=== PATIENT | female | born 1965 | race Caucasian/White ===

== ENCOUNTER 2021-07-24 18:47 | Emergency (ER) | payer SELFPAY ==
[2021-07-24] MEDS ORDERED: ACETAMINOPHEN 500 MG TAB PO ONE ×2 (19:36→21:42)
[2021-07-24] MEDS ORDERED: IBUPROFEN 800 MG TAB PO ONE ×2 (19:36→21:41)
[2021-07-24 19:55] LABS: Basophils % (Auto) 0.4 % (0.0-1.8); Eosinophils # (Auto) 0.1 K/mm3 (0.0-0.4); Eosinophils % (Auto) 2.3 % (0.0-4.3); Hematocrit 29.1 % (30.3-42.9); Hemoglobin 9.3 gm/dl (10.1-14.3); Lymphocytes # (Auto) 1.3 K/mm3 (1.2-5.4); Lymphocytes % (Auto) 21.8 % (13.4-35.0); Mean Corpuscular HGB Conc 32 % (30-34); Mean Corpuscular Volume 94 fl (79-97); Monocytes # (Auto) 0.9 K/mm3 (0.0-0.8); Monocytes % (Auto) 14.9 % (0.0-7.3); Platelet Count 405 K/mm3 (140-440); Red Blood Count 3.09 M/mm3 (3.65-5.03); Red Cell Distribution Width 14.8 % (13.2-15.2)
[2021-07-24 20:14] LABS: Blood Urea Nitrogen 15 mg/dL (7-17); Calcium 9.7 mg/dL (8.4-10.2); Hemolysis Index 17
[2021-07-24 20:15] LABS: BUN/Creatinine Ratio 30
--- NOTE | 2021-07-24 23:51 | Emergency Department Report ---
ED Psych HPI - General Chief Complaint: Psych Stated Complaint: LUPUS FLARE UP/SI Time Seen by Provider: 07/24/21 19:35 Source: patient, EMS Mode of arrival: Stretcher Limitations: No Limitations - History of Present Illness Initial Comments: CC: "I'm suicidal. I am in pain." HPI: This is a 55 yo female with hx of anxiety, depression and lupus who pr esents with suicidal thoughts and bilateral chronic thigh/hip pain. NO hx of trauma. She attributes pain to lupus. She lives in [place], [place] with no social support and limited income. She was recently placed in [facility] by outside facility. She arrives via EMS. She does not have a plan to harm herself or others. She denies hallucinations. MD Complaint: suicidal ideation -: Gradual, week(s) (Several weeks) Associated Psychiatric Symptoms: depression, suicidal ideation History of same: Yes Quality: constant Improves With: none Worsens With: none Context: not taking psychiatric, significant life stressor Associated Symptoms: other (Chronic hip pain) If Self Harm: admits thoughts of - Related Data Home Medications Medication Instructions Recorded Confirmed Last Taken Oxycodone HCl/Acetaminophen 1 tab PO TID 07/25/21 07/25/21 Unknown [Percocet 10/325 mg] Allergies Allergy/AdvReac Type Severity Reaction Status Date / Time No Known Allergies Allergy Verified 07/24/21 18:56 ED Review of Systems ROS: Stated complaint: LUPUS FLARE UP/SI Other details as noted in HPI Comment: All other systems reviewed and negative Constitutional: denies: chills, fever, malaise Respiratory: denies: cough, shortness of breath Gastrointestinal: denies: abdominal pain, nausea, vomiting Musculoskeletal: arthralgia Psychiatric: anxiety, depression, suicidal thoughts. denies: auditory hallucinations, visual hallucinations, homicidal thoughts ED Past Medical Hx - Past Medical History Previous Medical History?: Yes Hx Psychiatric Treatment: Yes (Anxiety depression) Additional medical history: LUPUS, SI - Surgical History Additional Surgical History: Unable to obtain due to lack of patient cooperation - Social History Smoking Status: Current Every Day Smoker Substance Use Type: None - Medications Home Medications: Home Medications Medication Instructions Recorded Confirmed Last Taken Type Oxycodone HCl/Acetaminophen 1 tab PO TID 07/25/21 07/25/21 Unknown History [Percocet 10/325 mg] ED Physical Exam - General Limitations: No Limitations General appearance: alert, in no apparent distress, other (Nontoxic, GCS 15,) - Head Head exam: Present: atraumatic, normocephalic - Eye Eye exam: Present: normal appearance - ENT ENT exam: Present: mucous membranes moist - Neck Neck exam: Present: normal inspection, full ROM - Respiratory Respiratory exam: Present: normal lung sounds bilaterally. Absent: respiratory distress, wheezes, rales, rhonchi - Cardiovascular Cardiovascular Exam: Present: regular rate, normal rhythm, normal heart sounds. Absent: systolic murmur, diastolic murmur, rubs, gallop - GI/Abdominal GI/Abdominal exam: Present: soft, normal bowel sounds. Absent: distended, tenderness, guarding, rebound - Extremities Exam Extremities exam: Present: normal inspection, full ROM. Absent: tenderness - Expanded Lower Extremity Exam Left Hip exam: Present: normal inspection, full ROM Upper Leg exam: Present: normal inspection, full ROM Knee exam: Present: normal inspection, full ROM Lower Leg exam: Present: normal inspection, full ROM Right Hip exam: Present: normal inspection, full ROM Upper Leg exam: Present: normal inspection, full ROM Knee exam: Present: normal inspection, full ROM Lower Leg exam: Present: normal inspection, full ROM - Back Exam Back exam: Present: normal inspection - Neurological Exam Neurological exam: Present: alert, oriented X3 - Psychiatric Psychiatric exam: Present: normal affect, normal mood - Skin Skin exam: Present: warm, dry, intact, normal color. Absent: rash ED Course Vital Signs 07/24/21 07/24/21 07/24/21 18:55 20:30 22:32 Temperature 98.0 F 98.1 F Pulse Rate 92 H 73 Respiratory 16 18 Rate Blood Pressure 153/104 134/54 [Right] O2 Sat by Pulse 98 100 98 Oximetry 07/25/21 07/25/21 07/25/21 10:05 11:50 19:40 Temperature 98.6 F 98.9 F Pulse Rate 94 H 90 Respiratory 18 18 Rate Blood Pressure 107/65 139/70 [Right] O2 Sat by Pulse 98 98 97 Oximetry 07/25/21 07/26/21 07/26/21 20:05 10:57 22:00 Temperature 98.2 F 97.6 F Pulse Rate 98 H 94 H Respiratory 18 18 Rate Blood Pressure 117/70 134/62 [Right] O2 Sat by Pulse 97 99 97 Oximetry ED Medical Decision Making - Lab Data Result diagrams: 07/24/21 19:42 07/24/21 19:42 Laboratory Results - last 24 hr 07/24/21 07/24/21 07/24/21 19:42 19:42 19:42 WBC 5.8 RBC 3.09 L Hgb 9.3 L Hct 29.1 L MCV 94 MCH 30 MCHC 32 RDW 14.8 Plt Count 405 Lymph % (Auto) 21.8 [facility] % (Auto) 14.9 H Eos % (Auto) 2.3 Baso % (Auto) 0.4 Lymph # (Auto) 1.3 [facility] # (Auto) 0.9 H Eos # (Auto) 0.1 Baso # (Auto) 0.0 Seg Neutrophils % 60.6 Seg Neutrophils # 3.5 Sodium 136 L Potassium 4.6 Chloride 98.9 Carbon Dioxide 27 Anion Gap 15 BUN 15 Creatinine 0.5 L Estimated GFR > 60 BUN/Creatinine Ratio 30 Glucose 211 H Calcium 9.7 Salicylates < 0.3 L Acetaminophen Plasma/Serum Alcohol 07/24/21 07/24/21 19:42 19:42 WBC RBC Hgb Hct MCV MCH MCHC RDW Plt Count Lymph % (Auto) [facility] % (Auto) Eos % (Auto) Baso % (Auto) Lymph # (Auto) [facility] # (Auto) Eos # (Auto) Baso # (Auto) Seg Neutrophils % Seg Neutrophils # Sodium Potassium Chloride Carbon Dioxide Anion Gap BUN Creatinine Estimated GFR BUN/Creatinine Ratio Glucose Calcium Salicylates Acetaminophen 5.0 L Plasma/Serum Alcohol < 0.01 - Medical Decision Making 1. Suicidal ideation without plan: I suspect homelessness this indication for secondary gain. She is medically clear for psychiatric care. Awaiting both mental health consult and case management consultations. CBC chemistry unremarkable. Mild anemia. Serum toxicology unremarkable 2. History of SLE: No indication of severe exacerbation. Patient has chronic thigh and hip pain. Given ibuprofen and Tylenol upon arrival. Critical care attestation.: If time is entered above; I have spent that time in minutes in the direct care of this critically ill patient, excluding procedure time. ED Disposition Clinical Impression: Lupus, Anxiety, Depression Disposition: [address] [place] [address] Is pt being admited?: No Does the pt Need Aspirin: No Condition: Stable Referrals: PRIMARY CARE, [Primary Care Provider] - 3-5 Days
[2021-07-25] MEDS ORDERED: ACETAMINOPHEN 325 MG TAB PO ONE (09:26)
[2021-07-25] MEDS ORDERED: IBUPROFEN 800 MG TAB PO ONE (09:26)
--- NOTE | 2021-07-25 11:29 | Consultation ---
History of Present Illness - Reason for Consult Consult date: 07/25/21 Reason for consult: SI - History of Present Psychiatric Illness Bernadine Garcia is a 55y/o female patient whom I seen today. She is sobbing, and says she's hurting and no one is helping her. She endorses suicidal thoughts. She states she has no help or no social support. The patient says "I'm tired of l iving like this." When asking the patient if she had a plan to harm herself, she puts her head under the linen and says "I'm depressed, and I'm hurting. I'm not talking anymore." PAST PSYCHIATRIC HISTORY: Unable to obtain PAST MEDICAL HISTORY: unknown Family Psychiatric History: None reported or documented SOCIAL HISTORY Unable to obtain REVIEW OF SYSTEMS Unable to obtain MENTAL STATUS EXAMINATION General Appearance and Behavior: Age appropriate, good hygiene, wearing appropriate clothes. calm, Cooperation: Cooperative Psychomotor Behavior: Psychomotor normal Mood: Depressed Affect and affective range: tearful Thought Process: circumstantial Thought Content: hopelessness Speech: Normal tone and pace Suicidal Ideation: Yes Homicidal Ideation: Denies Hallucinations: Denies Delusions: Denies Impulse Control: Poor Insight and Judgment: Limited insight and fair judgment Memory: Limited Attention: distracted Orientation: a/o x 3 Assessment (1) Major Depressive Disorder Treatment Plan 1013 Agree with Case management consult Cynbalta 30mg po daily Trazodone 50mg po qhs Vistaril 50mg po BID Medical: Per primary Disposition: Recommend acute psychiatric inpatient treatment Will follow. Thanks Case staffed with Dr. Liu Medications and Allergies Allergies Allergy/AdvReac Type Severity Reaction Status Date / Time No Known Allergies Allergy Verified 07/24/21 18:56 Home Medications Medication Instructions Recorded Confirmed Last Taken Type Oxycodone HCl/Acetaminophen 1 tab PO TID 07/25/21 07/25/21 Unknown History [Percocet 10/325 mg] Mental Status Exam - Vital signs Last Vital Signs Temp 98.1 F 07/24/21 20:30 Pulse 73 07/24/21 20:30 Resp 18 07/24/21 20:30 BP 134/54 07/24/21 20:30 Pulse Ox 98 07/25/21 10:05 Results Result Diagrams: 07/24/21 19:42 07/24/21 19:42 Abnormal lab results 07/24/21 07/24/21 07/24/21 Range/Units 19:42 19:42 19:42 RBC 3.09 L (3.65-5.03) M/mm3 Hgb 9.3 L (10.1-14.3) gm/dl Hct 29.1 L (30.3-42.9) % [place] % (Auto) 14.9 H (0.0-7.3) % [place] # (Auto) 0.9 H (0.0-0.8) K/mm3 Sodium 136 L (137-145) mmol/L Creatinine 0.5 L (0.6-1.2) mg/dL Glucose 211 H (65-100) mg/dL Salicylates < 0.3 L (2.8-20.0) mg/dL Acetaminophen (10.0-30.0) ug/mL 07/24/21 Range/Units 19:42 RBC (3.65-5.03) M/mm3 Hgb (10.1-14.3) gm/dl Hct (30.3-42.9) % [place] % (Auto) (0.0-7.3) % [place] # (Auto) (0.0-0.8) K/mm3 Sodium (137-145) mmol/L Creatinine (0.6-1.2) mg/dL Glucose (65-100) mg/dL Salicylates (2.8-20.0) mg/dL Acetaminophen 5.0 L (10.0-30.0) ug/mL All other labs normal.
[2021-07-25] MEDS ORDERED: HALOPERIDOL LACTATE 5 MG/1 ML INJ IM PRN (12:02)
[2021-07-25] MEDS ORDERED: diphenhydrAMINE 25 MG CAP PO PRN (12:02)
[2021-07-25] MEDS ORDERED: LORazepam 2 MG/ML VIAL IM PRN (12:02)
[2021-07-25] MEDS ORDERED: IBUPROFEN 400 MG TAB PO PRN (12:04)
--- NOTE | 2021-07-25 12:07 | Event Note ---
Date: 07/25/21 The patient was evaluated in the emergency department for symptoms described in the history of present illness. He/she was evaluated in the context of the global COVID-19 pandemic, which necessitated consideration that the patient might be at risk for infection with the virus that causes COVID-19. Institutional protocols and algorithms that pertain to the evaluation of patients at risk for COVID-19 are in a state of rapid change based on information released by regulatory bodies including the CDC and federal and state organizations. These policies and algorithms were followed during the patient's care in the emergency department. Please note that these policies, procedures and recommendations changed on a rapid basis. Laboratory studies, vital signs, nursing documentation, ER documentation, and psychiatric documentation are reviewed and appreciated. The patient was deemed medically suitable for psychiatric disposition and pl acement during his initial ER evaluation. The patient continues to remain medically suitable for psychiatric placement and disposition. sHe is currently pending psychiatric placement. The patient told staff members that she has lupus. She is unclear about where her original diagnosis came from. She states that she was diagnosed "somewhere in [facility]." She states this was diagnosed many years ago. She reports that to the best of her recollection, she does not have a primary care doctor, pain specialist, or wireless operator. She did report to nursing team that she has been prescribed Percocet . Looked patient up on [place] prescription monitoring database, using her personal identifying characteristics, and found no records of Percocet or controlled substances. Laboratory studies reviewed and appreciated. Start patient on as needed Tylenol, Motrin, iron sulfate, daily multivitamin, and folic acid. A 1013 form has been filled out and ordered by myself, as per the recommendation of the psychiatric team. Vital Signs 07/24/21 07/24/21 07/24/21 18:55 20:30 22:32 Temperature 98.0 F 98.1 F Pulse Rate 92 H 73 Respiratory 16 18 Rate Blood Pressure 153/104 134/54 [Right] O2 Sat by Pulse 98 100 98 Oximetry 07/25/21 07/25/21 10:05 11:50 Temperature 98.6 F Pulse Rate 94 H Respiratory 18 Rate Blood Pressure 107/65 [Right] O2 Sat by Pulse 98 98 Oximetry Lab Results 07/24/21 07/24/21 07/24/21 Range/Units 19:42 19:42 19:42 WBC 5.8 (4.5-11.0) K/mm3 RBC 3.09 L (3.65-5.03) M/mm3 Hgb 9.3 L (10.1-14.3) gm/dl Hct 29.1 L (30.3-42.9) % MCV 94 (79-97) fl MCH 30 (28-32) pg MCHC 32 (30-34) % RDW 14.8 (13.2-15.2) % Plt Count 405 (140-440) K/mm3 Lymph % (Auto) 21.8 (13.4-35.0) % [place] % (Auto) 14.9 H (0.0-7.3) % Eos % (Auto) 2.3 (0.0-4.3) % Baso % (Auto) 0.4 (0.0-1.8) % Lymph # (Auto) 1.3 (1.2-5.4) K/mm3 [place] # (Auto) 0.9 H (0.0-0.8) K/mm3 Eos # (Auto) 0.1 (0.0-0.4) K/mm3 Baso # (Auto) 0.0 (0.0-0.1) K/mm3 Seg Neutrophils % 60.6 (40.0-70.0) % Seg Neutrophils # 3.5 (1.8-7.7) K/mm3 Sodium 136 L (137-145) mmol/L Potassium 4.6 (3.6-5.0) mmol/L Chloride 98.9 (98-107) mmol/L Carbon Dioxide 27 (22-30) mmol/L Anion Gap 15 mmol/L BUN 15 (7-17) mg/dL Creatinine 0.5 L (0.6-1.2) mg/dL Estimated GFR > 60 ml/min BUN/Creatinine Ratio 30 % Glucose 211 H (65-100) mg/dL Calcium 9.7 (8.4-10.2) mg/dL Salicylates < 0.3 L (2.8-20.0) mg/dL Acetaminophen (10.0-30.0) ug/mL Plasma/Serum Alcohol (0-0.07) % SARS-CoV-2 (PCR) (Negative) 01/18/22 01/18/22 01/19/22 Range/Units 19:42 19:42 08:30 WBC (4.5-11.0) K/mm3 RBC (3.65-5.03) M/mm3 Hgb (10.1-14.3) gm/dl Hct (30.3-42.9) % MCV (79-97) fl MCH (28-32) pg MCHC (30-34) % RDW (13.2-15.2) % Plt Count (140-440) K/mm3 Lymph % (Auto) (13.4-35.0) % [place] % (Auto) (0.0-7.3) % Eos % (Auto) (0.0-4.3) % Baso % (Auto) (0.0-1.8) % Lymph # (Auto) (1.2-5.4) K/mm3 [place] # (Auto) (0.0-0.8) K/mm3 Eos # (Auto) (0.0-0.4) K/mm3 Baso # (Auto) (0.0-0.1) K/mm3 Seg Neutrophils % (40.0-70.0) % Seg Neutrophils # (1.8-7.7) K/mm3 Sodium (137-145) mmol/L Potassium (3.6-5.0) mmol/L Chloride (98-107) mmol/L Carbon Dioxide (22-30) mmol/L Anion Gap mmol/L BUN (7-17) mg/dL Creatinine (0.6-1.2) mg/dL Estimated GFR ml/min BUN/Creatinine Ratio % Glucose (65-100) mg/dL Calcium (8.4-10.2) mg/dL Salicylates (2.8-20.0) mg/dL Acetaminophen 5.0 L (10.0-30.0) ug/mL Plasma/Serum Alcohol < 0.01 (0-0.07) % SARS-CoV-2 (PCR) Negative (Negative)
[2021-07-25] MEDS: DULoxetine 30 MG CAP PO SCH (13:01)
[2021-07-25 13:33] LABS: Bacteria,Urine 2+ /HPF (Negative); Bilirubin,Urine NEG (Negative); Blood,Urine NEG (Negative); Color,Urine Yellow (Yellow); Mucus,Urine FEW /HPF; Protein,Urine <15 mg/dL mg/dL (Negative); Urobilinogen,Urine < 2.0 mg/dL (<2.0)
[2021-07-25 13:40] LABS: Amphetamine Screen,Urine Negative; Benzodiazepines Screen,Urine Negative; Cannabinoid Screen,Urine Negative; Cocaine Screen,Urine Negative; Methadone Screen,Urine Negative; Opiate Screen,Urine Negative
[2021-07-25] MEDS: ACETAMINOPHEN 325 MG TAB PO PRN ×2 (15:29→21:57)
[2021-07-25] MEDS: FERROUS SULFATE 325 MG TAB PO SCH (21:56)
[2021-07-25] MEDS: traZODone 50 MG TAB PO SCH (21:56)
[2021-07-26] MEDS ORDERED: MULTIVITAMINS ,THERAPEUTIC TAB PO SCH (10:00)
[2021-07-26] MEDS ORDERED: FOLIC ACID 1 MG TAB PO SCH (10:00)
--- NOTE | 2021-07-26 10:42 | Progress Note ---
Subjective - Reason for Consult Consult date: 07/26/21 Reason for consult: SI - Chief Complaint Chief complaint: The patient was seen today. She is somewhat avoidant, and throws the linen over her head when I walk in the room. I tell her she needs to talk to me today. She says "I just woke up." She then says "I'm still feeling suicidal and I need help." The patient starts crying. She denies a plan to commit suicide. She denies hallucinations of any kind. REVIEW OF SYSTEMS Unable to obtain MENTAL STATUS EXAMINATION General Appearance and Behavior: Age appropriate, good hygiene, wearing appropriate clothes. calm, Cooperation: Cooperative Psychomotor Behavior: Psychomotor normal Mood: Depressed Affect and affective range: tearful Thought Process: circumstantial Thought Content: hopelessness Speech: Normal tone and pace Suicidal Ideation: Yes Homicidal Ideation: Denies Hallucinations: Denies Delusions: Denies Impulse Control: Poor Insight and Judgment: Limited insight and fair judgment Memory: Limited Attention: distracted Orientation: a/o x 3 Assessment (1) Major Depressive Disorder Treatment Plan 1013 Agree with Case management consult Cynbalta 30mg po daily Trazodone 50mg po qhs Vistaril 50mg po BID Medical: Per primary Disposition: Recommend acute psychiatric inpatient treatment Will follow. Thanks Case staffed with Dr. Liu Mental Status Exam - Vital signs Last Vital Signs Temp 98.9 F 07/25/21 19:40 Pulse 90 07/25/21 19:40 Resp 18 07/25/21 19:40 BP 139/70 07/25/21 19:40 Pulse Ox 97 07/25/21 20:05
[2021-07-26] MEDS: FERROUS SULFATE 325 MG TAB PO SCH ×2 (11:28→21:51)
[2021-07-26] MEDS: DULoxetine 30 MG CAP PO SCH (11:28)
--- NOTE | 2021-07-26 12:40 | Event Note ---
Date: 07/26/21 The patient was evaluated in the emergency department for symptoms described in the history of present illness. He/she was evaluated in the context of the global COVID-19 pandemic, which necessitated consideration that the patient might be at risk for infection with the virus that causes COVID-19. Institutional protocols and algorithms that pertain to the evaluation of patients at risk for COVID-19 are in a state of rapid change based on information released by regulatory bodies including the CDC and federal and state organizations. These policies and algorithms were followed during the patient's care in the emergency department. Please note that these policies, procedures and recommendations changed on a rapid basis. Laboratory studies, vital signs, nursing documentation, ER documentation, and psychiatric documentation are reviewed and appreciated. Nursing team reports no acute events this morning or concerns. Patient resting comfortably on her side, and in no acute distress The patient was deemed medically suitable for psychiatric disposition and placement during her initial ER evaluation. The patient continues to remain medically suitable for psychiatric placement and disposition. sHe is currently pending psychiatric placement. Nursing team endorses that patient ate breakfast this morning, and went to the bathroom without difficulty Vital Signs 07/24/21 07/24/21 07/24/21 18:55 20:30 22:32 Temperature 98.0 F 98.1 F Pulse Rate 92 H 73 Respiratory 16 18 Rate Blood Pressure 153/104 134/54 [Right] O2 Sat by Pulse 98 100 98 Oximetry 07/25/21 07/25/21 07/25/21 10:05 11:50 19:40 Temperature 98.6 F 98.9 F Pulse Rate 94 H 90 Respiratory 18 18 Rate Blood Pressure 107/65 139/70 [Right] O2 Sat by Pulse 98 98 97 Oximetry 07/25/21 07/26/21 20:05 10:57 Temperature 98.2 F Pulse Rate 98 H Respiratory 18 Rate Blood Pressure 117/70 [Right] O2 Sat by Pulse 97 99 Oximetry Lab Results 07/24/21 07/24/21 07/24/21 Range/Units 19:42 19:42 19:42 WBC 5.8 (4.5-11.0) K/mm3 RBC 3.09 L (3.65-5.03) M/mm3 Hgb 9.3 L (10.1-14.3) gm/dl Hct 29.1 L (30.3-42.9) % MCV 94 (79-97) fl MCH 30 (28-32) pg MCHC 32 (30-34) % RDW 14.8 (13.2-15.2) % Plt Count 405 (140-440) K/mm3 Lymph % (Auto) 21.8 (13.4-35.0) % [place] % (Auto) 14.9 H (0.0-7.3) % Eos % (Auto) 2.3 (0.0-4.3) % Baso % (Auto) 0.4 (0.0-1.8) % Lymph # (Auto) 1.3 (1.2-5.4) K/mm3 [place] # (Auto) 0.9 H (0.0-0.8) K/mm3 Eos # (Auto) 0.1 (0.0-0.4) K/mm3 Baso # (Auto) 0.0 (0.0-0.1) K/mm3 Seg Neutrophils % 60.6 (40.0-70.0) % Seg Neutrophils # 3.5 (1.8-7.7) K/mm3 Sodium 136 L (137-145) mmol/L Potassium 4.6 (3.6-5.0) mmol/L Chloride 98.9 (98-107) mmol/L Carbon Dioxide 27 (22-30) mmol/L Anion Gap 15 mmol/L BUN 15 (7-17) mg/dL Creatinine 0.5 L (0.6-1.2) mg/dL Estimated GFR > 60 ml/min BUN/Creatinine Ratio 30 % Glucose 211 H (65-100) mg/dL Calcium 9.7 (8.4-10.2) mg/dL Urine Color (Yellow) Urine Turbidity (Clear) Urine pH (5.0-7.0) Ur Specific [place] (1.003-1.030) Urine Protein (Negative) mg/dL Urine Glucose (UA) (Negative) mg/dL Urine Ketones (Negative) mg/dL Urine Blood (Negative) Urine Nitrite (Negative) Urine Bilirubin (Negative) Urine Urobilinogen (<2.0) mg/dL Ur Leukocyte Esterase (Negative) Urine WBC (Auto) (0.0-6.0) /HPF Urine RBC (Auto) (0.0-6.0) /HPF U Epithel Cells (Auto) (0-13.0) /HPF Urine Bacteria (Auto) (Negative) /HPF Urine Mucus /HPF Salicylates < 0.3 L (2.8-20.0) mg/dL Urine Opiates Screen Urine Methadone Screen Acetaminophen (10.0-30.0) ug/mL Ur Barbiturates Screen Ur Phencyclidine Scrn Ur Amphetamines Screen U Benzodiazepines Scrn Urine Cocaine Screen U Marijuana (THC) Screen Drugs of Abuse Note Plasma/Serum Alcohol (0-0.07) % SARS-CoV-2 (PCR) (Negative) 07/24/21 07/24/21 07/25/21 Range/Units 19:42 19:42 08:30 WBC (4.5-11.0) K/mm3 RBC (3.65-5.03) M/mm3 Hgb (10.1-14.3) gm/dl Hct (30.3-42.9) % MCV (79-97) fl MCH (28-32) pg MCHC (30-34) % RDW (13.2-15.2) % Plt Count (140-440) K/mm3 Lymph % (Auto) (13.4-35.0) % [place] % (Auto) (0.0-7.3) % Eos % (Auto) (0.0-4.3) % Baso % (Auto) (0.0-1.8) % Lymph # (Auto) (1.2-5.4) K/mm3 [place] # (Auto) (0.0-0.8) K/mm3 Eos # (Auto) (0.0-0.4) K/mm3 Baso # (Auto) (0.0-0.1) K/mm3 Seg Neutrophils % (40.0-70.0) % Seg Neutrophils # (1.8-7.7) K/mm3 Sodium (137-145) mmol/L Potassium (3.6-5.0) mmol/L Chloride (98-107) mmol/L Carbon Dioxide (22-30) mmol/L Anion Gap mmol/L BUN (7-17) mg/dL Creatinine (0.6-1.2) mg/dL Estimated GFR ml/min BUN/Creatinine Ratio % Glucose (65-100) mg/dL Calcium (8.4-10.2) mg/dL Urine Color (Yellow) Urine Turbidity (Clear) Urine pH (5.0-7.0) Ur Specific [place] (1.003-1.030) Urine Protein (Negative) mg/dL Urine Glucose (UA) (Negative) mg/dL Urine Ketones (Negative) mg/dL Urine Blood (Negative) Urine Nitrite (Negative) Urine Bilirubin (Negative) Urine Urobilinogen (<2.0) mg/dL Ur Leukocyte Esterase (Negative) Urine WBC (Auto) (0.0-6.0) /HPF Urine RBC (Auto) (0.0-6.0) /HPF U Epithel Cells (Auto) (0-13.0) /HPF Urine Bacteria (Auto) (Negative) /HPF Urine Mucus /HPF Salicylates (2.8-20.0) mg/dL Urine Opiates Screen Urine Methadone Screen Acetaminophen 5.0 L (10.0-30.0) ug/mL Ur Barbiturates Screen Ur Phencyclidine Scrn Ur Amphetamines Screen U Benzodiazepines Scrn Urine Cocaine Screen U Marijuana (THC) Screen Drugs of Abuse Note Plasma/Serum Alcohol < 0.01 (0-0.07) % SARS-CoV-2 (PCR) Negative (Negative) 07/25/21 07/25/21 Range/Units Unknown Unknown WBC (4.5-11.0) K/mm3 RBC (3.65-5.03) M/mm3 Hgb (10.1-14.3) gm/dl Hct (30.3-42.9) % MCV (79-97) fl MCH (28-32) pg MCHC (30-34) % RDW (13.2-15.2) % Plt Count (140-440) K/mm3 Lymph % (Auto) (13.4-35.0) % [place] % (Auto) (0.0-7.3) % Eos % (Auto) (0.0-4.3) % Baso % (Auto) (0.0-1.8) % Lymph # (Auto) (1.2-5.4) K/mm3 [place] # (Auto) (0.0-0.8) K/mm3 Eos # (Auto) (0.0-0.4) K/mm3 Baso # (Auto) (0.0-0.1) K/mm3 Seg Neutrophils % (40.0-70.0) % Seg Neutrophils # (1.8-7.7) K/mm3 Sodium (137-145) mmol/L Potassium (3.6-5.0) mmol/L Chloride (98-107) mmol/L Carbon Dioxide (22-30) mmol/L Anion Gap mmol/L BUN (7-17) mg/dL Creatinine (0.6-1.2) mg/dL Estimated GFR ml/min BUN/Creatinine Ratio % Glucose (65-100) mg/dL Calcium (8.4-10.2) mg/dL Urine Color Yellow (Yellow) Urine Turbidity Hazy (Clear) Urine pH 5.0 (5.0-7.0) Ur Specific [place] 1.023 (1.003-1.030) Urine Protein <15 mg/dl (Negative) mg/dL Urine Glucose (UA) 50 (Negative) mg/dL Urine Ketones Neg (Negative) mg/dL Urine Blood Neg (Negative) Urine Nitrite Neg (Negative) Urine Bilirubin Neg (Negative) Urine Urobilinogen < 2.0 (<2.0) mg/dL Ur Leukocyte Esterase Tr (Negative) Urine WBC (Auto) 5.0 (0.0-6.0) /HPF Urine RBC (Auto) 1.0 (0.0-6.0) /HPF U Epithel Cells (Auto) 17.0 H (0-13.0) /HPF Urine Bacteria (Auto) 2+ (Negative) /HPF Urine Mucus Few /HPF Salicylates (2.8-20.0) mg/dL Urine Opiates Screen Negative Urine Methadone Screen Negative Acetaminophen (10.0-30.0) ug/mL Ur Barbiturates Screen Negative Ur Phencyclidine Scrn Negative Ur Amphetamines Screen Negative U Benzodiazepines Scrn Negative Urine Cocaine Screen Negative U Marijuana (THC) Screen Negative Drugs of Abuse Note Disclamer Plasma/Serum Alcohol (0-0.07) % SARS-CoV-2 (PCR) (Negative)
[2021-07-26] MEDS: traZODone 50 MG TAB PO SCH (21:51)
[2021-07-26 22:58] VITALS: BP 134/62
== END 2021-07-27 05:44 ==
LOC: ED 18:47
DX: F32.9 Major depressive disorder, single episode, unspecified (principal); R45.851 Suicidal ideations; F17.200 Nicotine dependence, unspecified, uncomplicated; Z20.822 Contact with and (suspected) exposure to COVID-19; F41.9 Anxiety disorder, unspecified; L93.0 Discoid lupus erythematosus
CPT/HCPCS: 36415; 80048; 80307; 81001; 85025; 99284; Q0177; U0003; 80320; G0480

== ENCOUNTER 2021-08-20 16:52 | Emergency (ER) | payer SELFPAY ==
[2021-08-20] MEDS ORDERED: SODIUM CHLORIDE 0.9% 1000 ML 1,000 ML IV ONE (17:55)
[2021-08-20] MEDS ORDERED: INSULIN REGULAR, HUMAN 100 UNITS/1 ML IV ONE (17:56)
--- NOTE | 2021-08-20 18:00 | Emergency Department Report ---
<BETH BRIDGES - Last Filed: 08/21/21 12:20> ED Psych HPI - General Chief Complaint: Hyperglycemia Stated Complaint: HYPERGLYCEMIC - Related Data Home Medications Medication Instructions Recorded Confirmed Last Taken Oxycodone HCl/Acetaminophen 1 tab PO TID 07/25/21 07/25/21 Unknown [Percocet 10/325 mg] Previous Rx's Medication Instructions Recorded Last Taken Type FLUoxetine [PROzac] 10 mg PO QDAY #30 tablet 08/22/21 Unknown Rx Mirtazapine 15 mg PO QHS #30 08/22/21 Unknown Rx Allergies Allergy/AdvReac Type Severity Reaction Status Date / Time aspirin AdvReac Unknown Verified 08/21/21 07:31 ED Past Medical Hx - Medications Home Medications: Home Medications Medication Instructions Recorded Confirmed Last Taken Type Oxycodone HCl/Acetaminophen 1 tab PO TID 07/25/21 07/25/21 Unknown History [Percocet 10/325 mg] FLUoxetine [PROzac] 10 mg PO QDAY #30 tablet 08/22/21 Unknown Rx Mirtazapine 15 mg PO QHS #30 08/22/21 Unknown Rx ED Medical Decision Making - Lab Data Result diagrams: 08/20/21 18:21 08/20/21 18:21 - Medical Decision Making Patient is medically clear for psychiatric care. 1013 instituted by psychiatric team. ED Disposition Clinical Impression: Acute depression, Acute hyperglycemia, Suicidal ideation Disposition: 01 HOME / SELF CARE / HOMELESS Is pt being admited?: No Does the pt Need Aspirin: No Condition: Good Instructions: Hyperglycemia, [id number], Suicidal Feelings: How to Help Yourself Additional Instructions: Professional and Agency Contacts To help [facility](27/01) [place] Crisis Line: Suicide Prevention Line: Crisis Text Line: Text START to [phone] Emergency: 911 Outpatient COMMUNITY Behavioral Health Resources: [facility]: [facility] [address] [place], [place] [address] [place]EL[place]: [facility] [address] [place] [address] [place]: [facility] - [address] [place] [address] Friday thru Friday - 8am - 5pm ABIMA[place]: [facility] Address: [address], [place] [address] [place]: [facility] Address: [address] [place] [address] Friday thru Friday- 7am-2pm [facility] Address: [address] [place] [address] Friday thru Friday: 8:30AM-5PM Prescriptions: Mirtazapine 15 mg PO QHS #30 FLUoxetine [PROzac] 10 mg PO QDAY #30 tablet <GLORIA BENNETT - Last Filed: 08/22/21 13:39> ED Psych HPI - General Source: patient, EMS Mode of arrival: Stretcher - History of Present Illness Initial Comments: Patient is 55-year-old female with history of diabetes and SLE. Patient also history of depression. Patient brought to the emergency room via EMS for evaluation of high blood sugar and suicidal ideation. Patient stated that she is suicidal because she is in a lot of pain because of her SLE. Patient stated that her plan is to overdose on medication. Patient stated that she was admitted to [facility] last month for approximately 2 weeks. She denied any homicidal ideation. No visual or auditory hallucination. Patient also denied any chest pain, shortness of breath, cough, abdominal pain, nausea or vomiting. MD Complaint: suicidal ideation, other (Hyperglycemia) -: days(s) Associated Psychiatric Symptoms: depression, suicidal ideation Quality: constant Associated Symptoms: denies other symptoms If Self Harm: admits thoughts of, has plan ED Review of Systems ROS: Stated complaint: HYPERGLYCEMIC Other details as noted in HPI Comment: All other systems reviewed and negative Constitutional: denies: chills, fever Respiratory: denies: cough, shortness of breath, SOB with exertion Cardiovascular: denies: chest pain, palpitations Gastrointestinal: denies: abdominal pain, nausea, vomiting Musculoskeletal: denies: back pain Neurological: denies: headache, weakness, numbness, paresthesias, confusion Psychiatric: depression, suicidal thoughts. denies: auditory hallucinations, visual hallucinations, homicidal thoughts ED Physical Exam - General Limitations: No Limitations General appearance: alert, in no apparent distress - Head Head exam: Present: atraumatic, normocephalic, normal inspection - Eye Eye exam: Present: normal appearance - ENT ENT exam: Present: mucous membranes dry - Neck Neck exam: Present: normal inspection, full ROM. Absent: tenderness, meningismus - Respiratory Respiratory exam: Present: normal lung sounds bilaterally - Cardiovascular Cardiovascular Exam: Present: regular rate, normal rhythm, normal heart sounds - GI/Abdominal GI/Abdominal exam: Present: soft, normal bowel sounds. Absent: distended, tenderness, guarding, rebound, rigid, organomegaly, mass, bruit, pulsatile mass, hernia - Extremities Exam Extremities exam: Present: normal inspection, full ROM, normal capillary refill. Absent: tenderness - Back Exam Back exam: Present: normal inspection, full ROM. Absent: CVA tenderness (R), CVA tenderness (L) - Neurological Exam Neurological exam: Present: alert, oriented X3, CN II-XII intact - Psychiatric Psychiatric exam: Present: flat affect, suicidal ideation. Absent: homicidal ideation - Skin Skin exam: Present: warm, intact, normal color ED Course Vital Signs 08/20/21 08/20/21 08/20/21 16:56 19:07 20:00 Temperature Pulse Rate 90 Respiratory 16 Rate Blood Pressure 156/67 Blood Pressure 151/80 [Left] O2 Sat by Pulse 99 99 98 Oximetry 08/20/21 08/21/21 08/21/21 22:01 00:00 02:00 Temperature Pulse Rate Respiratory Rate Blood Pressure 167/63 177/111 Blood Pressure [Left] O2 Sat by Pulse 98 98 99 Oximetry 08/21/21 08/21/21 08/21/21 04:00 06:14 07:34 Temperature Pulse Rate Respiratory Rate Blood Pressure 149/100 149/100 Blood Pressure [Left] O2 Sat by Pulse 99 100 100 Oximetry 08/21/21 08/21/21 08/21/21 08:00 10:00 12:00 Temperature Pulse Rate Respiratory Rate Blood Pressure 157/84 183/96 118/68 Blood Pressure [Left] O2 Sat by Pulse 99 100 99 Oximetry 08/22/21 08/22/21 08/22/21 08:13 09:46 09:48 Temperature 97.8 F Pulse Rate 96 H 96 H Respiratory 18 Rate Blood Pressure 125/74 Blood Pressure 125/74 [Left] O2 Sat by Pulse 96 97 Oximetry ED Medical Decision Making - Lab Data Result diagrams: 08/20/21 18:21 08/20/21 18:21 Critical care attestation.: If time is entered above; I have spent that time in minutes in the direct care of this critically ill patient, excluding procedure time. ED Disposition Is pt being admited?: No
[2021-08-20 18:52] LABS: Blood Urea Nitrogen 18 mg/dL (7-17); Calcium 9.3 mg/dL (8.4-10.2); Hemolysis Index 12
[2021-08-20] MEDS ORDERED: SODIUM CHLORIDE 0.45% 1000 ML 1,000 ML IV ONE (18:55)
[2021-08-20 18:57] LABS: BUN/Creatinine Ratio 26
[2021-08-20 19:48] LABS: Amphetamine Screen,Urine Negative; Benzodiazepines Screen,Urine Negative; Cannabinoid Screen,Urine Negative; Cocaine Screen,Urine Negative; Methadone Screen,Urine Negative; Opiate Screen,Urine Negative
[2021-08-20 22:23] LABS: Hematocrit 35.4 % (30.3-42.9); Hemoglobin 11.5 gm/dl (10.1-14.3); Mean Corpuscular HGB Conc 33 % (30-34); Mean Corpuscular Volume 95 fl (79-97); Platelet Count 421 K/mm3 (140-440); Red Blood Count 3.74 M/mm3 (3.65-5.03); Red Cell Distribution Width 13.8 % (13.2-15.2)
[2021-08-20 23:39] LABS: Mucus,Urine FEW /HPF; RBC,Urine < 1.0 /HPF (0.0-6.0)
[2021-08-21 00:05] LABS: Bacteria,Urine 3+ /HPF (Negative)
[2021-08-21 00:36] LABS: Bilirubin,Urine Negative (Negative); Color,Urine Yellow (Yellow)
[2021-08-21 00:37] LABS: Blood,Urine Negative (Negative); Protein,Urine <15 mg/dL mg/dL (Negative); Urobilinogen,Urine < 2.0 mg/dL (<2.0)
[2021-08-21] MEDS ORDERED: SODIUM CHLORIDE 0.9% 1000 ML 1,000 ML IV ONE (06:20)
[2021-08-21] MEDS ORDERED: INSULIN REGULAR, HUMAN 100 UNITS/1 ML IV ONE (06:21)
[2021-08-21] MEDS ORDERED: ACETAMINOPHEN 500 MG TAB PO ONE (10:51)
--- NOTE | 2021-08-21 11:50 | Consultation ---
History of Present Illness - Reason for Consult Consult date: 08/21/21 Reason for consult: SI - History of Present Psychiatric Illness The patient was seen today. She is a 55y/o female brought to the ER by EMS for pain and suicidal ideation. She is a/o x 3. She is polite. During my evaluation of the patient she is crying. Her affect is flat. She verbalizes being very depressed, and endorses suicidal thoughts with a plan to overdose on "pills or poison." The patient says she lives in [place], and she was released from [facility] "down here." She says "I'm homeless. My family is in [place]." She denies a past psych history. I ask the patient why was she at [facility], but she couldn't really tell me. She denies being on any psych meds. The patient also denies any illicit drug use, alcohol or nicotine. The patient says "the discharged me to a home with nothing but men." She says "how is that a safe place. I need to be around women. I didn't feel safe there." She denies hallucinations of any kind. PAST PSYCHIATRIC HISTORY Diagnoses: Denies Suicide attempts or Self-harm behavior: Denies Prior psychiatric hospitalizations: Denies Substance Abuse history: Denies Previous psychiatric medications tried: Denies Outpatient treatment: Denies PAST MEDICAL HISTORY: SLE, DM Family Psychiatric History: Not available SOCIAL HISTORY Marital Status: Single Living Arrangements: Homeless Employment Status: Unemployed Access to guns/weapons: None reported Education: high school History of Abuse: None reported Legal History: None reported REVIEW OF SYSTEMS Constitutional: Negative for weight loss ENT: Negative for stridor Respiratory: Negative for cough or hemoptysis All other systems reviewed and are negative MENTAL STATUS EXAMINATION General Appearance and Behavior: Age appropriate, good hygiene, wearing appropriate clothes, good eye contact, cooperative polite with questioning. Cooperation: Participating Psychomotor Behavior: Normal Mood: depressed Affect and affective range: congruent with mood, Flat Thought Process: goal directed Thought Content: SI, hopelessness Speech: Normal volume, Regular rate and rhythm Suicidal Ideation: Yes, with plan Homicidal Ideation: Denies Hallucinations: Denies Delusions: None elicited Impulse Control: Limited Insight and Judgment: Limited insight and judgment Memory: Normal Attention: attentive Orientation: Alert, oriented Assessment and Plan (1) Major Depressive Disorder RECOMMENDATIONS 1013 Prozac 10mg po daily Remeron 15mg po qhs Medical: per primary Sitter: defer to primary Disposition: Recommend acute psychiatric inpatient treatment Will follow. Thanks. Case staffed with Dr. Liu Medications and Allergies Allergies Allergy/AdvReac Type Severity Reaction Status Date / Time aspirin AdvReac Unknown Verified 08/21/21 07:31 Home Medications Medication Instructions Recorded Confirmed Last Taken Type Oxycodone HCl/Acetaminophen 1 tab PO TID 07/25/21 07/25/21 Unknown History [Percocet 10/325 mg] Mental Status Exam - Vital signs Last Vital Signs Temp Pulse 90 08/20/21 16:56 Resp 16 08/20/21 16:56 BP 183/96 08/21/21 10:00 Pulse Ox 100 08/21/21 10:00 Results Result Diagrams: 08/20/21 18:21 08/20/21 18:21 Abnormal lab results 08/20/21 08/20/21 08/20/21 Range/Units 17:04 18:21 18:21 Sodium 136 L (137-145) mmol/L BUN 18 H (7-17) mg/dL Glucose 339 H (65-100) mg/dL POC Glucose 338 H (70-105) mg/dL Salicylates < 0.3 L (2.8-20.0) mg/dL Acetaminophen (10.0-30.0) ug/mL 08/20/21 08/21/21 08/21/21 Range/Units 18:21 05:43 07:33 Sodium (137-145) mmol/L BUN (7-17) mg/dL Glucose (65-100) mg/dL POC Glucose 303 H 259 H (70-105) mg/dL Salicylates (2.8-20.0) mg/dL Acetaminophen 5.0 L (10.0-30.0) ug/mL All other labs normal.
[2021-08-21] MEDS ORDERED: DEXTROSE 50% IN WATER (25GM) 50 ML SYRINGE IV PRN (11:57)
[2021-08-21] MEDS ORDERED: FLUoxetine 10 MG TAB PO SCH (12:00)
--- NOTE | 2021-08-21 12:08 | Emergency Department Report ---
Blank Doc - Documentation Documentation: 55-year-old female currently on 1013 for suicidal ideation. Patient required insulin therapy for hyperglycemia. No signs of DKA as per labs. Patient placed on sliding scale, labetalol twice daily ordered for management of blood pressure. Patient cannot recall her home medications. Psych medications initiated by mental health. Patient awaiting placement.
[2021-08-21] MEDS ORDERED: INSULIN REGULAR, HUMAN 100 UNITS/1 ML SUB-Q SCH (22:00)
[2021-08-21] MEDS: MIRTAZAPINE 15 MG TAB PO SCH (23:20)
[2021-08-22] MEDS: INSULIN REGULAR, HUMAN 100 UNITS/1 ML SUB-Q SCH ×3 (07:37→17:13)
--- NOTE | 2021-08-22 12:05 | Event Note ---
Date: 08/22/21 Patient is 55-year-old female with history of depression and current suicidal ideation. Patient also diabetic. Vital signs stable. Patient continued to have elevated blood glucose. Patient is currently on high- dose sliding scale patient just received 8 units of regular insulin. Patient has been evaluated by our psychiatric team and recommended patient to be discharged and follow-up as an outpatient. Patient is currently denying any suicidal or homicidal ideation. No auditory or visual hallucination. Patient is medically and psychiatrically stable for discharge.
--- NOTE | 2021-08-22 12:08 | Progress Note ---
Subjective - Reason for Consult Consult date: 08/22/21 Reason for consult: SI - Chief Complaint Chief complaint: The patient was seen today. She is sleeping but easily arouses. She is slightly irritable. She says her head hurts. The patient says "but I'm doing alright, just sleepy." She says she feels better. The patient says "I think I got somewhere to go." She denies SI/HI. She says "naw, not today." The patient denies hallucinations of any kind. REVIEW OF SYSTEMS Constitutional: Negative for weight loss ENT: Negative for stridor Respiratory: Negative for cough or hemoptysis All other systems reviewed and are negative MENTAL STATUS EXAMINATION General Appearance and Behavior: Age appropriate, good hygiene, wearing appropriate clothes, calm, cooperative polite with questioning. Cooperation: Participating Psychomotor Behavior: Normal Mood: better Affect and affective range: congruent with mood Thought Process: goal directed Thought Content: None Speech: Normal volume, Regular rate and rhythm Suicidal Ideation: Denies Homicidal Ideation: Denies Hallucinations: Denies Delusions: None elicited Impulse Control: Limited Insight and Judgment: Limited insight and judgment Memory: Normal Attention: attentive Orientation: Alert, oriented Assessment and Plan (1) Major Depressive Disorder RECOMMENDATIONS d/c 1013 Prozac 10mg po daily Remeron 15mg po qhs Medical: per primary Sitter: defer to primary Disposition: Do not recommend acute psychiatric inpatient treatment [facility] to give all necessary outpatient resources, and safety plan The patient to follow up in 7 to 14 days upon discharge Will sign off. Thanks. Case staffed with Dr. Liu Mental Status Exam - Vital signs Last Vital Signs Temp 97.8 F 08/22/21 09:48 Pulse 96 H 08/22/21 09:48 Resp 18 08/22/21 09:48 BP 125/74 08/22/21 09:48 Pulse Ox 97 08/22/21 09:48
[2021-08-22] MEDS ORDERED: INSULIN REGULAR, HUMAN 100 UNITS/1 ML SUB-Q ONE (14:28)
[2021-08-22] MEDS: MIRTAZAPINE 15 MG TAB PO SCH (22:00)
[2021-08-23] MEDS: INSULIN REGULAR, HUMAN 100 UNITS/1 ML SUB-Q SCH ×2 (04:03→08:53)
[2021-08-23] MEDS ORDERED: SODIUM CHLORIDE 0.9% 1000 ML 1,000 ML IV ONE (05:14)
[2021-08-23 10:43] VITALS: BP 110/68
== END 2021-08-23 10:44 | disposition home or self-care (01) ==
LOC: EDUNIT# → ED 16:52
DX: F32.A Depression, unspecified (principal); E11.65 Type 2 diabetes mellitus with hyperglycemia; R45.851 Suicidal ideations; Z88.6 Allergy status to analgesic agent
CPT/HCPCS: 36415; 80048; 80307; 81001; 82962; 85025; 96361; 96372; 96374; 99284; J7030; 80320; J3490; Q0162; Q9967; G0480; J1815